=== PATIENT | female | born 1940 | race Caucasian/White ===

== ENCOUNTER 2016-06-29 14:58 | Inpatient (IN) | payer MEDICARE, OTHER ==
--- NOTE | 2016-08-27 09:33 | HP ---
DATE OF CLINIC: 08/19/2016 PATY DOMINGO : 1940 PLANNED PROCEDURE: Left Total Knee Arthroplasty DATE OF PROCEDURE: August 31, 2016 SURGEON: Heladio Roa M.D. PCP: Dr. Pato Dyer HISTORY OF PRESENT ILLNESS Paty Domingo is a 76 year old female. * Medication list reviewed with patient allergy list reviewed with patient. Mrs. Domingo is in today pre-operatively for her upcoming left total knee arthroplasty with Dr. Roa on 08/31/16. Patient presents in good spirits and is eager to proceed. She denies recent illness or change in health. She has lost over 70 pounds in the past year with a guided program and kept it off. She denies recent illness, change in health, or prior surgical complications. Current labs are pending. Her recent consult with Dr. Roa follows: 75-year-old female here for evaluation with respect to bilateral, left greater than right, atraumatic, progressive, knee discomfort. She has previously been seeing Dr. Larkin for that. She has radiographs from 10/16/15 that are available for review showing significant bilateral degenerative disease, worse on the left with medial compartment narrowing, periarticular sclerosis and hypertrophic spurring. She has significant involvement in the patellofemoral articulation as well, particularly on the left side. She has had 2 previous visco supplementation series with [facility] completing 01/08/16 on the right side and 12/04/15 on the left. These have "helped quite a bit". She continues to feel a fair amount of limitation with weight-bearing related pain, fairly global and worse at startup. She does have rest pain, no radicular symptoms, no significant hip discomfort. She has discussed definitive management with arthroplasty with Dr. Larkin in the past, but because of her morbid obesity has not been a reasonable candidate. She has been working very hard with a nutritional health service called, [employer], and has been able to drop her weight from 273 to 220 pounds. She is interested in my thoughts with respect to additional management. Comorbidities include a history of hypertension and reactive airway disease as well as hypothyroidism. CURRENT MEDICATION * Evening Macomb Oil 500 MG Capsule as directed 0 days, 0 refills * Sodium Hydroxide Pellet as directed 0 days, 0 refills PAST MEDICAL/SURGICAL HISTORY Reported: Medical: A previous fracture Right thumb Rib fractures, Reported numbness, Reported tingling, Thyroid Disorder Hypothyroidism, Hypertension, and Asthma. Surgical / Procedural: Prior surgery trigger finger release Colonoscopy Jun 2008 w/ removal of 2 polyps- repeat colonoscopy 2013 EGD Feb 2011 multiple fundic polyps, Appendectomy 1962, Eye Surgery Cataracts excised 2008, and Hernia repair Ventral Hernia repair Jul 2008. Hypercholesterolemia Esophagitis ( GERD) Allergic Rhinitis Ventral Hernia Colon Polyps Hiatal Hernia Menopause. SOCIAL HISTORY Behavioral: Never smoked. Smoking status: Never smoker. Work: Occupation Retired. ALLERGIES * Entex Reaction: Palpitations * Tetanus Toxoid Adsorbed Reaction: local reaction FAMILY HISTORY Family medical history Mother- Heart Disease, Stroke,Hypertension Father- Stroke, Hypertension Brother- Diabetes, Cancer, Hypertension Sister - Depression REVIEW OF SYSTEMS Systemic: No fever and no recent weight change. Head: No head symptoms. Cardiovascular: No cardiovascular symptoms. Pulmonary: No pulmonary symptoms. Gastrointestinal: Gastrointestinal symptoms GERD, diet induced. Psychological: No psychological symptoms. Skin: No skin lesions and no rash. PHYSICAL FINDINGS * Vitals taken 08/19/2016 01:08 pm BP-Sitting L 95/72 mmHg 100 - 120/56 - 80 BP Cuff Size Regular Pulse Rate-Sitting 62 bpm 50 - 100 Temp-Oral 97.2 F 96 - 101 Height 63.75 in 59 - 68 Weight 199 lbs 95 - 175 Body Mass Index 34.4 kg/m2 Body Surface Area 1.95 m2 Pain Level 0 Ears, Nose, Throat: * ENT: normal. Lungs: * Clear to auscultation. Cardiovascular: Heart Rate and Rhythm: * Normal. Abdomen: * Normal. Neurological: Motor: * Dominant Hand = Right Hand. Patient is an obese female in no acute distress, normal-appearing mood and affect. She has a wide-based, stiff-legged gait more notable on startup and favoring the left side. Left knee exam shows skin integrity to be well-preserved, no wounds, rashes or lesions. No obvious focal swelling or effusion. Motion is 0-105 degrees. She is tender medial greater than lateral, but fairly diffuse. Ligamentous exam is intact for cruciates and collaterals. She is tender over the anteromedial proximal tibia. Calf is soft and NT. Distal light touch sensation and motor function are grossly intact and symmetric. Pulses are palpable. Gentle rotation of the hip is non-irritable. Right knee exam shows skin integrity to be well-preserved, no wounds, rashes or lesions. No obvious focal swelling or effusion. Motion is 0-105 degrees. She is tender medial greater than lateral, fairly diffuse. Ligamentous exam is intact for cruciates and collaterals. She is tender to palpation over the anteromedial proximal tibia. Calf is soft and NT. Distal light touch sensation and motor function are grossly intact and symmetric. Pulses are palpable. Gentle rotation of the hip is non-irritable. TESTS X-rays are as noted above. ASSESSMENT * Localized primary osteoarthritis of the left knee Patient with advanced degenerative disease of bilateral knees, clinically and radiographically worse on the left. THERAPY * Patient fall risk screen negative. * Patient eligible for fall risk assessment. * Patient received fall risk assessment. COUNSELING/EDUCATION * Education and counseling Total Joint Book given PLAN * OTHER OxyCONTIN 10 MG T12A, 1 po q 12 hours-TO BE USED FOR AFTER SURGERY, 10 days, 0 refills TraMADol HCl 50 MG TABS, 1 po q 6 hours prn pain-TO BE USED FOR AFTER SURGERY, 5 days, 0 refills OxyCODONE HCl 5 MG TABS, 1-2 po q 4 hours for break thru pain if needed-TO BE USED FOR AFTER SURGERY, 5 days, 0 refills * Total knee arthroplasty -Left Discussed with patient in detail the limitations, expectations as well as risks and possible complications of surgery including, but not limited to wound problems or infection, neurovascular injury, continued knee pain or dysfunction, including the possibility of prosthetic wear or failure over time that may require additional operative or non-operative treatment. Patient also realizes the perioperative risks including risks associated with anesthesia and would like to proceed. A full PAR conference was held, questions and concerns addressed and informed consent was obtained. Patient will be sent from my office for completion of the preoperative workup. [facility] consult for perioperative medical management. Patient will use aspirin 325mg daily postoperatively for DVT prophylaxis. Patient would like to perform their postop PT at [facility] with left total knee arthroplasty protocol. CARE TEAM Pato Dyer MD Family Practice CC: [facility]o Dyer MD [facility]
[2016-08-31] MEDS ORDERED: POLYMYXIN B SULFATE 500,000 UNITS, BACITRACIN 25,000 UNITS in SODIUM CHLORIDE 3 L IRRIG... IR PRN (06:45)
[2016-08-31] MEDS ORDERED: ONDANSETRON 4 MG/2ML 2 ML VIAL IV ONE (06:45)
[2016-08-31] MEDS ORDERED: BUPIVACAINE 0.25% (MDV) 24 ML, MORPHINE SULFATE 8 MG, EPINEPHRINE 0.3 MG in SODIUM CHLO... IF PRN (06:45)
[2016-08-31] MEDS ORDERED: CELECOXIB 200 MG CAPSULE PO ONE (06:45)
[2016-08-31] MEDS ORDERED: LACTATED RINGERS 1,000 ML ONE (06:45)
[2016-08-31] MEDS ORDERED: TRAMADOL HCL 50 MG TABLET PO ONE (06:45)
[2016-08-31] MEDS ORDERED: FAMOTIDINE 20 MG TABLET PO ONE (06:45)
[2016-08-31] MEDS ORDERED: BUPIVACAINE 0.25% (MDV) 20 ML in SODIUM CHLORIDE 0.9% FLUSH 20 ML IF PRN (06:45)
[2016-08-31] MEDS ORDERED: GABAPENTIN 600 MG TABLET PO ONE (06:45)
[2016-08-31] MEDS ORDERED: CLONIDINE HCL 0.1 MG/24 HR (7 DAY PATCH) TD SCH (06:45)
[2016-08-31] MEDS ORDERED: CEFAZOLIN SODIUM 2 GRAM PREMIX 100 ML IV ONE (06:45)
[2016-08-31] MEDS ORDERED: CEFAZOLIN SODIUM 2 GRAM PREMIX 100 ML IV PRN (06:45)
[2016-08-31] MEDS ORDERED: IV START KIT ONE (06:45)
[2016-08-31] MEDS ORDERED: TRANEXAMIC ACID 1,000 MG in SODIUM CHLORIDE 0.9% 100 ML IV PRN (06:45)
[2016-08-31] MEDS ORDERED: OXYCODONE HCL 10 MG TAB.SR PO ONE ×2 (06:45→07:18)
[2016-08-31] MEDS ORDERED: ONDANSETRON 4 MG/2ML 2 ML VIAL ONE ×2 (07:18→07:52)
[2016-08-31] MEDS ORDERED: TRAMADOL HCL 50 MG TABLET ONE (07:18)
[2016-08-31] MEDS ORDERED: GABAPENTIN 600 MG TABLET ONE (07:19)
[2016-08-31] MEDS ORDERED: FAMOTIDINE 20 MG TABLET ONE (07:19)
[2016-08-31] MEDS ORDERED: CLONIDINE HCL 0.1 MG/24 HR (7 DAY PATCH) TD ONE (07:19)
[2016-08-31] MEDS ORDERED: CELECOXIB 200 MG CAPSULE ONE (07:20)
[2016-08-31] MEDS ORDERED: PROPOFOL 20 ML IV ONE ×2 (07:52→10:48)
[2016-08-31] MEDS ORDERED: FENTANYL 100 MCG/2 ML VIAL ONE (07:53)
[2016-08-31] MEDS ORDERED: MIDAZOLAM HCL 1 MG/ML 2ML VIAL ONE (07:53)
[2016-08-31] MEDS ORDERED: LIDOCAINE 2% (PRES FREE) 5 ML VIAL ONE (07:54)
[2016-08-31] MEDS ORDERED: ROPIVACAINE 0.5% 30 ML VIAL ONE (08:34)
[2016-08-31] MEDS ORDERED: NERVE BLOCK PROCEDURAL TRAY 1 EACH ONE (08:36)
[2016-08-31] MEDS ORDERED: SPINAL PROCEDURAL TRAY 1 EACH ONE (09:16)
[2016-08-31] MEDS ORDERED: MEPERIDINE 25 MG/ML SYRINGE IV PRN (10:25)
[2016-08-31] MEDS ORDERED: NALOXONE HCL 0.4 MG/ML VIAL IV PRN (10:25)
[2016-08-31] MEDS ORDERED: ONDANSETRON 4 MG/2ML 2 ML VIAL IV PRN (10:25)
[2016-08-31] MEDS ORDERED: ON-Q PUMP/ROPIVACAINE 0.2% 450 ML in PREMIX BAG 1 EACH NB PRN (10:25)
[2016-08-31] MEDS ORDERED: PROMETHAZINE HCL 25 MG/ML VIAL IM PRN (10:25)
[2016-08-31] MEDS ORDERED: FENTANYL 100 MCG/2 ML VIAL IV PRN (10:25)
[2016-08-31] MEDS ORDERED: HYDROMORPHONE HCL 1 MG/ML SYRINGE IV PRN (10:25)
[2016-08-31] MEDS ORDERED: ATROPINE SULFATE 0.4 MG/1 ML VIAL IV PRN (10:25)
[2016-08-31] MEDS ORDERED: EPHEDRINE SULFATE UD SYR 25 MG 25 MG/5 ML SYRINGE IV ONE (10:29)
[2016-08-31] MEDS ORDERED: LACTATED RINGERS 1,000 ML IV SCH (10:30)
[2016-08-31] MEDS ORDERED: DEXAMETHASONE SOD PHOS 4 MG/1 ML VIAL ONE (10:48)
[2016-08-31] MEDS ORDERED: ON-Q PUMP/ROPIVACAINE 0.2% 450 ML ONE (11:41)
--- NOTE | 2016-08-31 12:10 | PCMBPN ---
Brief Post Op Note: Date of Procedure: 08/31/16 Preoperative Diagnosis: DJD left knee Postoperative Diagnosis: 1. [Same] Procedure: left TKA Surgeon: Heladio Roa MD Assist: Marco (TIAGO) Anesthesia: spinal/add block Findings: DJD Condition: stable to PAR Complications: none IV Fluids: 1500 mLs of LR Urine Output: 200 mLs Estimated Blood Loss: 150 mLs Tourniquet Time: ~40 minutes Specimens: [N/A] Implants: Attune Drains: none
[2016-08-31] MEDS ORDERED: HYDROMORPHONE HCL 0.5 MG/0.5 ML SYRINGE IV PRN (12:40)
[2016-08-31] MEDS ORDERED: KETOROLAC TROMETHAMINE 30 MG/ML 1 ML VIAL IV PRN (12:40)
[2016-08-31] MEDS ORDERED: TEMAZEPAM 15 MG CAPSULE PO PRN (12:40)
[2016-08-31] MEDS ORDERED: CALCIUM CARBONATE 500 MG TAB.CHEW PO PRN (12:40)
--- NOTE | 2016-08-31 12:42 | RAD ---
EXAMINATION: KNEE LEFT 1 OR 2 VIEWS INDICATION:Patient is status post left total knee arthroplasty. Immediate postoperative examination. TECHNIQUE: 2 views of the left knee were obtained. COMPARISON: Presurgical study dated 10/16/2015. A left total knee arthroplasty is noted. No hardware is abnormality is identified. There is no adjacent fracture. The bones appear well seated. Postsurgical changes of the soft tissues are noted. IMPRESSION: Satisfactory immediate postoperative appearance left total knee arthroplasty.
[2016-08-31] MEDS: ON-Q PUMP/ROPIVACAINE 0.2% 450 ML in PREMIX BAG 1 EACH NB PRN (12:43)
[2016-08-31] MEDS ORDERED: PUMP TUBING ONE (14:02)
[2016-08-31] MEDS: D5 1/2NS with 20 mEq KCL 1,000 ML IV SCH ×2 (14:07→22:00)
[2016-08-31 14:17] VITALS: BMI 35.3
[2016-08-31] MEDS: ONDANSETRON 4 MG/2ML 2 ML VIAL IV PRN (17:30)
[2016-08-31] MEDS: CEFAZOLIN SODIUM 1 GRAM PREMIX 1 G in Premix (D5W) 50 ml 1 EACH IV SCH (17:31)
[2016-08-31] MEDS ORDERED: TRAMADOL HCL 50 MG TABLET PO PRN (18:00)
[2016-08-31] MEDS: DOCUSATE SODIUM 100 MG CAPSULE PO SCH ×2 (21:18→21:21)
[2016-08-31] MEDS: ASCORBIC ACID 500 MG TABLET PO SCH ×2 (21:18→21:22)
[2016-08-31] MEDS: ACETAMINOPHEN 500 MG TABLET PO SCH (21:21)
[2016-09-01] MEDS: CEFAZOLIN SODIUM 1 GRAM PREMIX 1 G in Premix (D5W) 50 ml 1 EACH IV SCH (03:07)
[2016-09-01] MEDS: ON-Q PUMP/ROPIVACAINE 0.2% 450 ML in PREMIX BAG 1 EACH NB PRN ×2 (04:38→20:40)
[2016-09-01] MEDS: ACETAMINOPHEN 500 MG TABLET PO SCH ×5 (04:51→23:39)
[2016-09-01] MEDS: D5 1/2NS with 20 mEq KCL 1,000 ML IV SCH ×3 (04:52→23:19)
[2016-09-01 06:15] LABS: HEMATOCRIT 37.1 % (37.0-47.0); MEAN CELL VOLUME 94.6 fl (81.0-99.0); MEAN CORPUSCULAR HEMOGLOBIN 30.6 pg (27.0-31.0); MEAN CORPUSCULAR HGB CONC 32.3 g/dl (33.0-37.0); RED CELL DISTRIBUTION WIDTH 13.5 % (11.5-14.5)
[2016-09-01 06:28] LABS: CALCIUM 8.6 mg/dL (8.6-10.3)
[2016-09-01] MEDS ORDERED: REMOVE PATCH 1 EACH UNIT TD SCH (06:45)
--- NOTE | 2016-09-01 08:09 | PDOC43 ---
- Subjective Findings: Pt seen this morning up awake and doing well. She is eating breakfast. Pain under control. She did have one episode of N/V. Subjective: Reports Pain Tolerable, Reports Nausea, Reports Vomiting, Denies Flatus, Denies Chest Pain, Denies Shortness of Breath, Denies Fever - Objective Vital Signs Temperature 97.9 F 09/01/16 07:45 Pulse Rate 50 09/01/16 07:45 Respiratory Rate 17 09/01/16 07:45 Blood Pressure 99/54 09/01/16 07:45 O2 Saturation by Pulse Oximetry 99 09/01/16 07:45 Oxygen Delivery Method Room Air Oxygen Flow Rate 0 Laboratory 09/01/16 05:30 09/01/16 05:30 09/01/16 05:30 RBC 3.92 L MCHC 32.3 L Active Medication Orders Category Date Time Status Acetaminophen [Tylenol] Med 08/31/16 18:30 Active 1,000 mg PO Q6H Ascorbic Acid [Vitamin C] Med 08/31/16 21:00 Active 500 mg PO BID Aspirin (Enteric Coated) [Ecotrin] Med 09/01/16 09:00 Active 325 mg PO DAILY Bisacodyl [Dulcolax] Med 09/03/16 12:04 Active 10 mg NM DAILY PRN Calcium Carbonate [Tums] Med 08/31/16 12:40 Active 1,000 - 2,000 mg PO Q2H PRN Celecoxib [Celebrex] Med 09/01/16 09:00 Active 200 mg PO DAILY D5 1/2NS with 20 mEq KCL [D51/2NS with 20 mEq KCL] 1, Med 08/31/16 12:40 Active 000 ml IV 125 mls/hr Docusate Sodium [Colace] Med 08/31/16 21:00 Active 100 mg PO BID Hydromorphone HCl [Dilaudid] Med 08/31/16 12:40 Active 0.5 mg IV Q1H PRN Ketorolac Tromethamine [Toradol] Med 08/31/16 12:40 Active 30 mg IV Q6H PRN Magnesium Hydroxide [Milk of Magnesia] Med 09/01/16 12:04 Active 30 ml PO DAILY PRN Multivitamins [One-A-Day] Med 09/01/16 09:00 Active 1 tab PO DAILY On-Q Pump/Ropivacaine 0.2% 450 ml Med 08/31/16 12:40 Active Premix Bag [Premix Fluid] 1 each NB Q50H Ondansetron 4 mg/2ml Vial [Zofran] Med 08/31/16 12:40 Active 4 - 6 mg IV Q6H PRN Oxycodone HCl [Roxicodone] Med 08/31/16 12:40 Active 5 - 10 mg PO Q4H PRN Remove Patch Med 09/01/16 12:04 Once 1 each TD X1 ONE Sodium Chloride 0.9% Flush [Normal Saline 10ml Flush] Med 08/31/16 12:40 Active 10 - 50 ml IV PRN PRN Sodium Chloride 0.9% Flush [Normal Saline 10ml Flush] Med 08/31/16 17:00 Active 10 ml IV Q8HR Temazepam [Restoril] Med 08/31/16 12:40 Active 15 mg PO BEDTIME PRN Tramadol HCl [Ultram] Med 08/31/16 18:00 Active 50 mg PO Q6H PRN Intake and Output 08/30/16 08/31/16 09/01/16 23:59 23:59 23:59 Intake Total 2223 1643 Output Total 1050 400 Balance 1173 1243 General: Afebrile HEENT: Atraumatic Lungs: Normal Air Movement Abdomen: Non-Distended Skin: Normal Color Neurological: Alert Psych/Mental Status: Normal Affect, Normal Mood - Left Lower Extremity Motor: Extensor Hallucis Longus: 5/5, Tibialis Anterior: 5/5, Gastrocnemius: 5/5 , Peroneals: 5/5, Quadriceps: 3/5 Gross Sensation to Light Touch: Present: Deep Peroneal Nerve, Superficial Peroneal Nerve Capillary Refill: < 3 Seconds Motion: Calf soft NT Knee rom 0-60 min assist with SLR - Problems (1) Status post left knee replacement Status: AcuteAssessment/Plan: Pod#1 1. Physical Therapy: Mobilize with PT/OT, encouraged bed exercise 2. Pain Control: Per protocol and nerve cath 3. DVT Prophylaxis: ASA, foot pumps and mobility 4. Disposition: Doing well and is motivated 5. Medical Issues: Hyponatremia- asymptomatic will repeat BMP in the am
[2016-09-01] MEDS: CELECOXIB 200 MG CAPSULE PO SCH (08:26)
[2016-09-01] MEDS: ASCORBIC ACID 500 MG TABLET PO SCH ×2 (08:26→20:22)
[2016-09-01] MEDS: DOCUSATE SODIUM 100 MG CAPSULE PO SCH ×2 (08:26→20:22)
[2016-09-01] MEDS: ASPIRIN (ENTERIC COATED) 325 MG TABLET.EC PO SCH (08:26)
[2016-09-01] MEDS: MULTIVITAMINS 1 TAB TABLET PO SCH (08:26)
[2016-09-01] MEDS ORDERED: REMOVE PATCH 1 EACH UNIT TD ONE (12:04)
[2016-09-01] MEDS: OXYCODONE HCL 5 MG TABLET PO PRN ×4 (12:27→23:39)
[2016-09-01] MEDS: MAGNESIUM HYDROXIDE 30 ML UDCUP PO PRN (20:22)
[2016-09-02] MEDS: D5 1/2NS with 20 mEq KCL 1,000 ML IV SCH ×2 (05:09→13:36)
[2016-09-02] MEDS: OXYCODONE HCL 5 MG TABLET PO PRN ×2 (05:15→13:31)
[2016-09-02] MEDS: ACETAMINOPHEN 500 MG TABLET PO SCH ×2 (05:41→13:31)
[2016-09-02 06:13] LABS: HEMATOCRIT 36.4 % (37.0-47.0)
[2016-09-02 06:40] LABS: CALCIUM 8.6 mg/dL (8.6-10.3)
[2016-09-02] MEDS: ASCORBIC ACID 500 MG TABLET PO SCH (08:07)
[2016-09-02] MEDS: DOCUSATE SODIUM 100 MG CAPSULE PO SCH (08:07)
[2016-09-02] MEDS: MULTIVITAMINS 1 TAB TABLET PO SCH (08:07)
[2016-09-02] MEDS: ASPIRIN (ENTERIC COATED) 325 MG TABLET.EC PO SCH (08:07)
[2016-09-02] MEDS: MAGNESIUM HYDROXIDE 30 ML UDCUP PO PRN (08:08)
[2016-09-02] MEDS: CELECOXIB 200 MG CAPSULE PO SCH (08:08)
[2016-09-02] MEDS: ONDANSETRON 4 MG/2ML 2 ML VIAL IV PRN (08:20)
--- NOTE | 2016-09-02 08:20 | PDOC43 ---
- Subjective Findings: Reasonable night although c/o pain this AM. Has noted some leaking around nerve catheter site Subjective: Denies Shortness of Breath, Denies Nausea, Denies Vomiting, Denies Fever - Objective Vital Signs Temperature 97.7 F 09/02/16 04:17 Pulse Rate 61 09/02/16 04:17 Respiratory Rate 18 09/02/16 04:17 Blood Pressure 105/56 09/02/16 04:17 O2 Saturation by Pulse Oximetry 100 09/02/16 04:17 Oxygen Delivery Method Room Air Oxygen Flow Rate 0 Laboratory 09/02/16 05:30 09/02/16 05:30 Active Medication Orders Category Date Time Status Acetaminophen [Tylenol] Med 08/31/16 18:30 Active 1,000 mg PO Q6H Ascorbic Acid [Vitamin C] Med 08/31/16 21:00 Active 500 mg PO BID Aspirin (Enteric Coated) [Ecotrin] Med 09/01/16 09:00 Active 325 mg PO DAILY Bisacodyl [Dulcolax] Med 09/03/16 12:04 Active 10 mg LA DAILY PRN Calcium Carbonate [Tums] Med 08/31/16 12:40 Active 1,000 - 2,000 mg PO Q2H PRN Celecoxib [Celebrex] Med 09/01/16 09:00 Active 200 mg PO DAILY D5 1/2NS with 20 mEq KCL [D51/2NS with 20 mEq KCL] 1, Med 08/31/16 12:40 Active 000 ml IV 125 mls/hr Docusate Sodium [Colace] Med 08/31/16 21:00 Active 100 mg PO BID Hydromorphone HCl [Dilaudid] Med 08/31/16 12:40 Active 0.5 mg IV Q1H PRN Magnesium Hydroxide [Milk of Magnesia] Med 09/01/16 12:04 Active 30 ml PO DAILY PRN Multivitamins [One-A-Day] Med 09/01/16 09:00 Active 1 tab PO DAILY On-Q Pump/Ropivacaine 0.2% 450 ml Med 08/31/16 12:40 Active Premix Bag [Premix Fluid] 1 each NB Q50H Ondansetron 4 mg/2ml Vial [Zofran] Med 08/31/16 12:40 Active 4 - 6 mg IV Q6H PRN Oxycodone HCl [Roxicodone] Med 08/31/16 12:40 Active 5 - 10 mg PO Q4H PRN Sodium Chloride 0.9% Flush [Normal Saline 10ml Flush] Med 08/31/16 12:40 Active 10 - 50 ml IV PRN PRN Sodium Chloride 0.9% Flush [Normal Saline 10ml Flush] Med 08/31/16 17:00 Active 10 ml IV Q8HR Temazepam [Restoril] Med 08/31/16 12:40 Active 15 mg PO BEDTIME PRN Tramadol HCl [Ultram] Med 08/31/16 18:00 Active 50 mg PO Q6H PRN Intake and Output 08/31/16 09/01/16 09/02/16 23:59 23:59 23:59 Intake Total 2223 2443 400 Output Total 5865 771 4845 Balance 1173 1493 -800 General: Afebrile, No Acute Distress HEENT: Mucous membr. moist/pink Lungs: Normal Air Movement Cardiovascular: Regular Rate and Rhythm Skin: Normal Color Neurological: Alert, Oriented x 4 Psych/Mental Status: Normal Affect, Normal Mood - Left Lower Extremity Incision: Dressing Clean/Dry/Intact (except for nerve catheter), Well Approximated, No Erythema, No Rash, No Ecchymosis Motor: Extensor Hallucis Longus: 5/5, Tibialis Anterior: 5/5, Gastrocnemius: 5/5 Gross Sensation to Light Touch: Present: Deep Peroneal Nerve, Superficial Peroneal Nerve, Medial Plantar Nerve, Lateral Plantar Nerve Capillary Refill: < 3 Seconds Motion: 0-60 at bedside with poor quad control - Problems (1) Status post left knee replacement Status: AcuteAssessment/Plan: Pod#2 1. Physical Therapy: Mobilize with PT/OT, encouraged bed exercise 2. Pain Control: Per protocol -will D/C nerve catheter secondary to leakage 3. DVT Prophylaxis: ASA, foot pumps and mobility 4. Disposition: Doing reasonably well although needs PT/OT work for safety/ independence prior to D/C 5. Medical Issues: Hyponatremia- resolved on repeat labs
[2016-09-02 13:26] VITALS: BP 151/70
--- NOTE | 2016-09-02 15:53 | OP ---
FOSTER AMEZQUITA : 1940 [id number] DATE OF SURGERY: August 31, 2016 PREOPERATIVE DIAGNOSIS: Degenerative joint disease left knee POSTOPERATIVE DIAGNOSIS: Same PROCEDURE: Left Total Knee Arthroplasty COMPONENTS: Attune size 4 posterior stabilized cemented femoral component, size 4 cemented tibial base plate, 6mm posterior stabilized RP insert, 35mm anatomic resurfacing patella. SURGEON: Heladio Roa M.D. PULP GRINDER: Marco KIMBLE) ANESTHESIA: Spinal plus adductor nerve block ESTIMATED BLOOD LOSS: 150 cc IV FLUID REPLACEMENT: per anesthesia, 1.5 liters crystalloid URINE OUTPUT: 200 cc DRAINS: None TOURNIQUET TIME: Approximately 40 minutes COMPLICATIONS: None HISTORY: Briefly, patient is a 76-year-old female with clinical and radiographic evidence of advanced degenerative disease of their left knee. They have failed traditional non-operative management and desire elective total knee arthroplasty. For additional details, please refer to the previously dictated Preoperative History and Physical Examination. A PAR conference was held, questions and concerns were addressed, and informed consent was obtained. FINDINGS: Tricompartmental changes more notable with medial proximal tibial wear as well as posterolateral femoral wear. Reasonable anterior trochlear osteophyte. No flexion contracture under anesthesia. Coronally stable. PROCEDURE: The patient was taken to the operating room after the placement of a spinal anesthetic and regional nerve block. They were placed supine on the operating room table, a tourniquet was applied to the proximal thigh and the left lower extremity was prepped and draped out in the usual sterile fashion. Preoperative IV antibiotics were given empirically. Intraoperative DVT prophylaxis consisted of contralateral foot pumps. Personal filtration suits were used as was a closed room environment. A WHO timeout was taken. Surgical site was identified and confirmed. The leg was then elevated and the tourniquet inflated after gravity exsanguination. This was released after initial exposure and not used again until cementation. Tranexamic acid was infiltrated over 10 minutes prior to incision, 1 gram dose per protocol. A similar 2nd dose was given at initiation of closure. With the knee flexed, an anteromedial incision was made from the level of the tibial tubercle to two centimeters proximal to the superior pole of the patella. A medial arthrotomy was performed with a mini-mid vastus approach. A medial subperiosteal proximal tibial release was performed and a portion of the anterior fat pad was excised to improve visualization. The supra-patellar pouch was raised subperiosteally. The anterior and posterior cruciate ligaments were excised as were the remaining portions of the anterior horns of the medial and lateral menisci. Minimally invasive instrumentation and philosophy were used throughout the procedure in an attempt to decrease the extent of soft tissue disruption/damage. Patient matched cutting blocks were also used as per our preoperative plan. The [employer] patient matched distal femoral pin guide was applied and distal resection pins were placed as well as marking external rotation. This seemed to be a fair amount more externally rotated than expected. We confirmed that the coronal alignment matched our preoperative plan and made the distal femoral cut. With the 4-in-1 block quite a bit anterior and felt that with the 5 block, which was called out for in the preoperative plan that our posterior resection was minimal. Was also unhappy, as noted above, with the external rotation. I used the measure resection guide and made a 3 degree external rotation pin. Went down to a 4 and then I shifted posteriorly 1.5mm which allowed for much improved anterior cut and posterior balance. We confirmed the size of the femur and placed the appropriate 4-in-1 cutting block making our anterior and posterior condylar cuts followed by the chamfer cuts. Residual marginal osteophytes were removed. Attention was then directed to the tibia which was retracted anteriorly. Remaining meniscal tissue was excised. The [employer] patient matched tibial pin guide was then positioned and proximal tibial resection pins were placed. This was noted to be more significant than expected. I therefore used the extramedullary alignment jig and backed our cutoff to 4mm on the medial side. Alignment was confirmed and the proximal tibial cut made. We then balanced the flexion and extension gaps by performing a limited posterior capsular release. We confirmed adequate hemostasis. We then completed the femoral preparation by cutting the notch. Femoral and tibial trial components were placed. The tibial punch was passed. We were able to obtain full extension with nice roll back and good coronal plane alignment and stability. The patella tracked well and was prepared using the Carissa patellar reaming system removing 9 mm. of bone. Osteophytes were removed prior to this with a rongeur and we performed a circumferential limited denervation using cautery. This was sized accordingly and punch holes were drilled. Femoral lugs were drilled as well. The knee was then re-exsanguinated and the tourniquet inflated. Double antibiotic pulsatile lavage was used to irrigate the knee and clean the cancellous sherry interstices which were then carefully dried. The initial periarticular injection, per protocol, was injected at this point to the posterior capsule as well as posteromedially and synovium. Two doses of high viscosity, antibiotic impregnated, polymethylmethacrylate were used to cement the tibial, femoral, and then patellar components. The knee was held in extension while the cement cured. All residual methacrylate was meticulously removed. Attention was then directed towards closure. We irrigated and the retinaculum was closed with a running #2 absorbable StratoFix suture. The 2nd periarticular injection was given at this point, per protocol, anteromedially in the pes as well as the extensor mechanism and the IT band. The repair was checked in maximum flexion. We then irrigated the subcutaneous tissue and closed with interrupted 2-0 and 3-0 Vicryl. The skin was then re-approximated with running subcuticular 4-0 Monocryl followed by Dermabond Prineo. A sterile compression dressing was applied. The patient was then transferred to their hospital bed and sent to the post anesthesia recovery room in stable condition. They tolerated the procedure well. Sponge, instrument, and needle count were correct. CC: Pato Dyer MD PT WILL Herrera
[2016-09-03] MEDS ORDERED: BISACODYL 10 MG SUP PR PRN (12:04)
--- NOTE | 2016-09-03 15:42 | DS ---
Paty AMEZQUITA [id number] : 1940 DATE OF ADMISSION: August 31, 2016 DATE OF DISCHARGE: September 02, 2069 DISCHARGE DIAGNOSES: Left knee osteoarthritis. HOSPITAL PROCEDURES: Left total knee arthroplasty. SURGEON: Heladio Roa M.D. BRIEF HISTORY: Patient is a 76-year-old female with clinical and radiographic evidence of advanced DJD of their left knee. For the full history please see the chart note. BRIEF HOSPITAL COURSE: Patient was admitted on August 31, 2016. Dr. Heladio Roa performed a left total knee arthroplasty. They were moved to the recovery room in stable condition. They were given 4 doses of antibiotic for empiric coverage. DVT prophylaxis consisted of enteric-coated aspirin, JACLYN hose and AV foot pumps. PT was instituted postop day, 0 with left total knee arthroplasty protocol, weightbearing as tolerated. Their incision site remained benign, their vital signs remained stable and they remained neurally and vascularly intact through the duration of the stay. They were discharged home on postop day, 2 to continue their outpatient PT at [facility] with left total knee arthroplasty protocol, weightbearing as tolerated. DISCHARGE INSTRUCTIONS: 1. Keep the wound site clean. May shower with Aquacel dressing intact. Call office with any questions or concerns and f/u for your dressing change as scheduled 1 week postop. 2. Continue the use of JACLYN hose bilaterally. 3. Cooling unit 3-4 times daily for 30 minutes duration. 4. Outpatient PT at [facility] for left total knee arthroplasty protocol, weightbearing as tolerated. MEDICATIONS: 1. Patient is to resume normal preop medications. 2. Anti-coagulation will be with enteric-coated aspirin 325 mg one by mouth each day for six weeks. 3. Pain management will be with, Oxycodone, 5mg 1-2 every 4 hours prn for breakthrough pain, Celebrex 200 mg one each day for two weeks. 4. Patient was also advised on utilization of a multi-vitamin with mineral daily as well as Vitamin C, 500mg daily for 1 month. 5. Patient encouraged to take an iron supplement in the form of ferrous sulfate, 325mg daily for 4 weeks. 6. Colace, 100mg, b.i.d. until regular bowel movement. FOLLOW-UP: Please return to the clinic as scheduled for your first scheduled postop check. Prior to that point in time please call with any questions or concerns. Job [id number] CC: [place] Celeste Dyer M.D.
== END 2016-09-02 16:50 | disposition home or self-care (01) | DRG 470 ==
LOC: OR 08-31 06:45 → MS 08-31 13:03
PROVIDERS: ADMIT Orthopaedic Surgery; ATTEND Orthopaedic Surgery
PROC: 0SRD0J9 Replacement of Left Knee Joint with Synthetic Substitute, Cemented, Open Approach (ICD-10-PCS; principal; 2016-08-31)
DX: M17.12 Unilateral primary osteoarthritis, left knee (principal); E87.1 Hypo-osmolality and hyponatremia; R11.2 Nausea with vomiting, unspecified; E66.01 Morbid (severe) obesity due to excess calories; K21.9 Gastro-esophageal reflux disease without esophagitis; I10 Essential (primary) hypertension; E03.9 Hypothyroidism, unspecified; J45.909 Unspecified asthma, uncomplicated; M76.891 Other specified enthesopathies of right lower limb, excluding foot; Z88.7 Allergy status to serum and vaccine; Z88.8 Allergy status to other drugs, medicaments and biological substances; Z68.34 Body mass index [BMI] 34.0-34.9, adult

== ENCOUNTER 2016-09-05 17:00 | Emergency (ER) | payer MEDICARE, OTHER ==
[2016-09-05] MEDS ORDERED: ENEMA--adult 1 EACH ONE (17:16)
[2016-09-05] MEDS ORDERED: LIDOCAINE 2% UROJECT 10 ML ONE (17:16)
== END 2016-09-05 18:45 | disposition home or self-care (01) ==
LOC: ED 17:00
DX: K59.00 Constipation, unspecified (principal); E03.9 Hypothyroidism, unspecified; E78.5 Hyperlipidemia, unspecified; E78.00 Pure hypercholesterolemia, unspecified; Z79.899 Other long term (current) drug therapy; Z79.82 Long term (current) use of aspirin; Z79.891 Long term (current) use of opiate analgesic; Z88.7 Allergy status to serum and vaccine
CPT/HCPCS: 99284; 99283; A9270 ×2